=== PATIENT | female | born 1930 | race Caucasian/White ===

== ENCOUNTER 2017-04-26 00:13 | Inpatient (IN) | payer MEDICARE, OTHER ==
[2017-04-26] MEDS: ASPIRIN 325 MG TAB PO (01:00)
[2017-04-26 01:18] LABS: ADD MAN DIFF? NO
[2017-04-26 01:19] LABS: WHITE BLOOD COUNT 12.5 10^3/ul (4.8-10.8)
[2017-04-26 01:19] LABS: BASOPHILS % 0.3 % (0.0-2.0); EOSINOPHILS # 0.1 10^3/ul (0.0-0.5); HEMATOCRIT 34.2 % (37.0-47.0); HEMOGLOBIN 10.9 g/dl (12.0-16.0); LYMPHOCYTES # 1.3 10^3/ul (0.8-2.9); LYMPHOCYTES % 10.6 % (15.0-51.0); MEAN CORPUSCULAR HEMOGLOBIN 26.6 pg (29.0-33.0); MEAN CORPUSCULAR HGB CONC 31.9 g/dl (32.0-37.0); MEAN CORPUSCULAR VOLUME 83.4 fl (82.0-101.0); MEAN PLATELET VOLUME 10.5 fl (7.4-10.4); MONOCYTE # 0.5 10^3/ul (0.3-0.9); NEUTROPHIL # 10.3 10^3/ul (1.6-7.5); NEUTROPHILS % 82.5 % (39.0-77.0); PLATELET COUNT 368 10^3/UL (140-415); RED CELL DISTRIBUTION WIDTH 13.3 % (11.5-14.5)
[2017-04-26 01:46] LABS: ANION GAP 19 (8-16); BLOOD UREA NITROGEN 61 mg/dl (7-20); CALCIUM 10.1 mg/dl (8.4-10.2); CARBON DIOXIDE 24 mmol/L (21-31); CHLORIDE 100 mmol/L (97-110); CREATININE 2.71 mg/dl (0.44-1.00); GLUCOSE 160 mg/dl (70-220); POTASSIUM 4.7 mmol/L (3.5-5.1); SODIUM 138 mmol/L (135-144)
[2017-04-26 01:56] LABS: B-TYPE NATRIURETIC PEPTIDE 26700 PG/ML (0-450)
[2017-04-26 02:05] LABS: TROPONIN-I 0.678 ng/ml (0.00-0.12)
[2017-04-26] MEDS: CALCIUM GLUCONATE 10% 1 GM in DEXTROSE 5% 100 ML IVPB (02:14)
[2017-04-26] MEDS: HEPARIN 1000 UNITS/ML 10 ML INJ IV (04:02)
[2017-04-26] MEDS: HEPARIN 25000 UNITS/250 ML 250 ML IV (04:04)
[2017-04-26] MEDS: ONDANSETRON 4 MG INJ IV ×2 (04:09→08:01)
[2017-04-26] MEDS ORDERED: NITROGLYCERIN (SL) 0.4 MG TAB SL (05:00)
[2017-04-26] MEDS ORDERED: NACL 0.9% 3 ML SYG IV (05:00)
[2017-04-26] MEDS: FUROSEMIDE 20 MG INJ IV (05:07)
[2017-04-26 06:41] LABS: CREATINE KINASE 45 IU/L (23-200)
[2017-04-26 06:53] LABS: CK INDEX 3.4; CK-MB 1.55 ng/ml (0.0-2.4)
[2017-04-26 07:17] LABS: TROPONIN-I 0.591 ng/ml (0.00-0.12)
[2017-04-26] MEDS: DONEPEZIL 10 MG TAB PO (07:55)
[2017-04-26] MEDS: GABAPENTIN 100 MG CAP PO ×2 (07:56→20:20)
[2017-04-26] MEDS ORDERED: HEPARIN 1000 UNITS/ML 10 ML INJ IV ×2 (08:00)
[2017-04-26] MEDS ORDERED: HEPARIN 25000 UNITS/250 ML 250 ML IV (08:00)
[2017-04-26] MEDS: PANTOPRAZOLE (EC) 40 MG TAB PO (08:01)
[2017-04-26 08:42] LABS: ADD MAN DIFF? NO
[2017-04-26 08:53] LABS: BASOPHILS % 0.4 % (0.0-2.0); EOSINOPHILS # 0.3 10^3/ul (0.0-0.5); EOSINOPHILS % 2.3 % (0.0-7.0); HEMATOCRIT 28.9 % (37.0-47.0); HEMOGLOBIN 9.5 g/dl (12.0-16.0); LYMPHOCYTES % 18.2 % (15.0-51.0); MEAN CORPUSCULAR HEMOGLOBIN 27.5 pg (29.0-33.0); MEAN CORPUSCULAR HGB CONC 32.9 g/dl (32.0-37.0); MEAN CORPUSCULAR VOLUME 83.8 fl (82.0-101.0); MEAN PLATELET VOLUME 10.3 fl (7.4-10.4); MONOCYTE # 0.6 10^3/ul (0.3-0.9); MONOCYTES % 5.8 % (0.0-11.0); NEUTROPHIL # 7.9 10^3/ul (1.6-7.5); PLATELET COUNT 301 10^3/UL (140-415); RED BLOOD COUNT 3.45 10^6/ul (4.20-5.40); RED CELL DISTRIBUTION WIDTH 13.6 % (11.5-14.5)
[2017-04-26 09:12] LABS: INR 1.22; PROTIME 15.6 Sec (11.9-14.9); PT RATIO 1.2
[2017-04-26 09:15] LABS: CREATINE KINASE 42 IU/L (23-200)
[2017-04-26 09:25] LABS: CK INDEX 4.1; CK-MB 1.74 ng/ml (0.0-2.4)
[2017-04-26 09:27] LABS: PARTIAL THROMBOPLASTIN TIME 154.4 Sec (25.0-35.0)
[2017-04-26 09:39] LABS: TROPONIN-I 0.605 ng/ml (0.00-0.12)
[2017-04-26] MEDS ORDERED: hydrALAzine 20 MG INJ (10:48)
[2017-04-26] MEDS: hydrALAzine 20 MG INJ IV ×2 (10:51→19:03)
[2017-04-26] MEDS ORDERED: ONDANSETRON INJ 8 MG in DEXTROSE 5% 50 ML IV (12:00)
[2017-04-26] MEDS ORDERED: LIDOCAINE 1% (MDV) 20 ML INJ (16:48)
[2017-04-26] MEDS ORDERED: FENTAnyl 50 MCG/ML VIAL (16:48)
[2017-04-26] MEDS ORDERED: IODIXANOL LOCM 50 ML BTL (16:48)
[2017-04-26] MEDS ORDERED: MIDAZOLAM 1 MG/ML 2 ML INJ (16:48)
[2017-04-26] MEDS ORDERED: SOD CHLORIDE 0.9% 500 ML (16:48)
[2017-04-26] MEDS ORDERED: ONDANSETRON 4 MG INJ (18:31)
[2017-04-26] MEDS: ATORVASTATIN 10 MG TAB PO (20:20)
[2017-04-26] MEDS: morphine 2 MG INJ IV (20:20)
[2017-04-26 20:53] LABS: PARTIAL THROMBOPLASTIN TIME 34.1 Sec (25.0-35.0)
[2017-04-26] MEDS ORDERED: ATORVASTATIN 10 MG TAB PO (21:00)
[2017-04-26] MEDS: ACETAMINOPHEN 325 MG TAB PO (22:09)
[2017-04-26] MEDS: CEFAZOLIN 1 GM/50 ML (PMX) 50 ML IVPB (22:10)
[2017-04-27] MEDS: morphine 2 MG INJ IV (01:12)
[2017-04-27] MEDS: ACETAMINOPHEN 325 MG TAB PO ×3 (04:41→17:56)
[2017-04-27] MEDS: CEFAZOLIN 1 GM/50 ML (PMX) 50 ML IVPB (07:16)
[2017-04-27] MEDS: PANTOPRAZOLE (EC) 40 MG TAB PO (07:16)
[2017-04-27 07:23] LABS: ADD MAN DIFF? NO
[2017-04-27 07:27] LABS: WHITE BLOOD COUNT 15.5 10^3/ul (4.8-10.8)
[2017-04-27 07:27] LABS: BASOPHILS % 0.1 % (0.0-2.0); EOSINOPHILS % 0.1 % (0.0-7.0); HEMATOCRIT 31.2 % (37.0-47.0); HEMOGLOBIN 9.9 g/dl (12.0-16.0); LYMPHOCYTES # 1.2 10^3/ul (0.8-2.9); LYMPHOCYTES % 7.5 % (15.0-51.0); MEAN CORPUSCULAR HEMOGLOBIN 26.6 pg (29.0-33.0); MEAN CORPUSCULAR HGB CONC 31.7 g/dl (32.0-37.0); MEAN CORPUSCULAR VOLUME 83.9 fl (82.0-101.0); MONOCYTE # 0.5 10^3/ul (0.3-0.9); MONOCYTES % 3.5 % (0.0-11.0); NEUTROPHIL # 13.6 10^3/ul (1.6-7.5); PLATELET COUNT 337 10^3/UL (140-415); RED BLOOD COUNT 3.72 10^6/ul (4.20-5.40); RED CELL DISTRIBUTION WIDTH 13.9 % (11.5-14.5)
[2017-04-27 07:58] LABS: ALANINE AMINOTRANSFERASE 43 IU/L (13-69); ALBUMIN 3.8 g/dl (3.3-4.9); ALBUMIN/GLOBULIN RATIO 1.15; ALKALINE PHOSPHATASE 120 IU/L (42-121); ANION GAP 21 (8-16); ASPARTATE AMINO TRANSFERASE 66 IU/L (15-46); BILIRUBIN,INDIRECT 0.1 mg/dl (0-1.1); BILIRUBIN,TOTAL 0.1 mg/dl (0.2-1.3); BLOOD UREA NITROGEN 71 mg/dl (7-20); CALCIUM 9.6 mg/dl (8.4-10.2); CARBON DIOXIDE 23 mmol/L (21-31); CHLORIDE 102 mmol/L (97-110); GLUCOSE 166 mg/dl (70-220); POTASSIUM 4.6 mmol/L (3.5-5.1); SODIUM 141 mmol/L (135-144); TOTAL PROTEIN 7.1 g/dl (6.1-8.1)
[2017-04-27] MEDS: DONEPEZIL 10 MG TAB PO (08:49)
[2017-04-27] MEDS: GABAPENTIN 100 MG CAP PO ×2 (08:49→21:00)
[2017-04-27] MEDS: ASPIRIN 81 MG TAB PO (08:49)
[2017-04-27] MEDS: TRIMETHOBENZAMIDE 100 MG/ML VIAL IM (08:57)
[2017-04-27] MEDS: AMLODIPINE 2.5 MG TAB PO (13:51)
[2017-04-27] MEDS: SOD CHLORIDE 0.45% 1,000 ML IV (13:52)
[2017-04-27] MEDS: ATORVASTATIN 10 MG TAB PO (21:23)
[2017-04-28] MEDS: ACETAMINOPHEN 325 MG TAB PO ×2 (03:00→22:45)
[2017-04-28] MEDS: SOD CHLORIDE 0.45% 1,000 ML IV (03:50)
[2017-04-28] MEDS: PANTOPRAZOLE (EC) 40 MG TAB PO (05:14)
[2017-04-28] MEDS: ASPIRIN 81 MG TAB PO (07:39)
[2017-04-28] MEDS: GABAPENTIN 100 MG CAP PO ×2 (07:39→20:37)
[2017-04-28 09:02] LABS: WHITE BLOOD COUNT 16.1 10^3/ul (4.8-10.8)
[2017-04-28 09:02] LABS: ADD MAN DIFF? NO
[2017-04-28 09:03] LABS: BASOPHILS % 0.1 % (0.0-2.0); EOSINOPHILS # 0.3 10^3/ul (0.0-0.5); HEMATOCRIT 29.4 % (37.0-47.0); HEMOGLOBIN 9.4 g/dl (12.0-16.0); LYMPHOCYTES # 1.3 10^3/ul (0.8-2.9); LYMPHOCYTES % 8.1 % (15.0-51.0); MEAN CORPUSCULAR HEMOGLOBIN 27.2 pg (29.0-33.0); MEAN CORPUSCULAR VOLUME 85.2 fl (82.0-101.0); MEAN PLATELET VOLUME 10.2 fl (7.4-10.4); MONOCYTE # 0.7 10^3/ul (0.3-0.9); MONOCYTES % 4.1 % (0.0-11.0); NEUTROPHIL # 13.7 10^3/ul (1.6-7.5); NEUTROPHILS % 85.1 % (39.0-77.0); PLATELET COUNT 273 10^3/UL (140-415); RED BLOOD COUNT 3.45 10^6/ul (4.20-5.40); RED CELL DISTRIBUTION WIDTH 14.4 % (11.5-14.5)
[2017-04-28 09:35] LABS: ANION GAP 16 (8-16); BLOOD UREA NITROGEN 68 mg/dl (7-20); CALCIUM 8.4 mg/dl (8.4-10.2); CARBON DIOXIDE 23 mmol/L (21-31); CHLORIDE 101 mmol/L (97-110); GLUCOSE 140 mg/dl (70-220); PHOSPHORUS 4.9 mg/dl (2.5-4.9); POTASSIUM 4.1 mmol/L (3.5-5.1); SODIUM 136 mmol/L (135-144)
[2017-04-28 11:27] LABS: ADD UMIC YES; UR ASCORBIC ACID NEGATIVE (NEGATIVE); UR BILIRUBIN (Dip) NEGATIVE (NEGATIVE); UR BLOOD (Dip) NEGATIVE (NEGATIVE); UR CLARITY CLEAR (CLEAR); UR COLOR YELLOW (YELLOW); UR GLUCOSE (Dip) NEGATIVE (NEGATIVE); UR KETONES (Dip) NEGATIVE (NEGATIVE); UR LEUKOCYTE ESTERASE (Dip) TRACE Leu/ul (NEGATIVE); UR NITRITE (Dip) NEGATIVE (NEGATIVE); UR RBC 1 /HPF (0-5); UR SPECIFIC GRAVITY (Dip) 1.017 (1.003-1.030); UR TOTAL PROTEIN (Dip) NEGATIVE (NEGATIVE); UR UROBILINOGEN (Dip) NEGATIVE (NEGATIVE); UR WBC 5 /HPF (0-5)
[2017-04-28 11:45] LABS: SODIUM,URINE RANDOM 19 mmol/L (30-90)
[2017-04-28 11:47] LABS: CREATININE,URINE RANDOM 93.85 mg/dl (20-320); PROTEIN/CREAT RATIO 0.15 RATIO
[2017-04-28] MEDS ORDERED: LEVOFLOXACIN 750MG/D5W (PMX) 150 ML IVPB (13:00)
[2017-04-28] MEDS: LEVOFLOXACIN 500MG/D5W (PMX) 100 ML IVPB (13:33)
[2017-04-28] MEDS: ALBUTEROL/IPRATROPIUM (NEB) 3 ML AMP HHN (13:34)
[2017-04-28] MEDS: ATORVASTATIN 10 MG TAB PO (20:37)
[2017-04-29] MEDS: traMADol 50 MG TAB PO (05:09)
[2017-04-29] MEDS: ACETAMINOPHEN 325 MG TAB PO ×2 (05:10→15:50)
[2017-04-29] MEDS: PANTOPRAZOLE (EC) 40 MG TAB PO (05:10)
[2017-04-29] MEDS: ALBUTEROL/IPRATROPIUM (NEB) 3 ML AMP HHN (06:06)
[2017-04-29 06:19] LABS: ADD MAN DIFF? NO
[2017-04-29 07:18] LABS: PHOSPHORUS 4.6 mg/dl (2.5-4.9)
[2017-04-29 07:37] LABS: ANION GAP 18 (8-16); BLOOD UREA NITROGEN 66 mg/dl (7-20); CALCIUM 8.2 mg/dl (8.4-10.2); CARBON DIOXIDE 22 mmol/L (21-31); CHLORIDE 99 mmol/L (97-110); CREATININE 2.32 mg/dl (0.44-1.00); GLUCOSE 99 mg/dl (70-220); SODIUM 134 mmol/L (135-144)
[2017-04-29] MEDS: GABAPENTIN 100 MG CAP PO ×2 (08:00→20:29)
[2017-04-29] MEDS: ASPIRIN 81 MG TAB PO (08:01)
[2017-04-29 08:19] LABS: BASOPHILS % 0.2 % (0.0-2.0); EOSINOPHILS # 0.2 10^3/ul (0.0-0.5); EOSINOPHILS % 1.1 % (0.0-7.0); HEMATOCRIT 28.9 % (37.0-47.0); HEMOGLOBIN 9.3 g/dl (12.0-16.0); LYMPHOCYTES # 1.7 10^3/ul (0.8-2.9); LYMPHOCYTES % 11.8 % (15.0-51.0); MEAN CORPUSCULAR HEMOGLOBIN 27.2 pg (29.0-33.0); MEAN CORPUSCULAR HGB CONC 32.2 g/dl (32.0-37.0); MEAN CORPUSCULAR VOLUME 84.5 fl (82.0-101.0); MEAN PLATELET VOLUME 10.2 fl (7.4-10.4); MONOCYTE # 0.7 10^3/ul (0.3-0.9); MONOCYTES % 4.8 % (0.0-11.0); NEUTROPHIL # 11.6 10^3/ul (1.6-7.5); NEUTROPHILS % 81.5 % (39.0-77.0); PLATELET COUNT 272 10^3/UL (140-415); RED BLOOD COUNT 3.42 10^6/ul (4.20-5.40); RED CELL DISTRIBUTION WIDTH 14.3 % (11.5-14.5)
[2017-04-29 08:19] LABS: WHITE BLOOD COUNT 14.3 10^3/ul (4.8-10.8)
[2017-04-29] MEDS: AMLODIPINE 2.5 MG TAB PO ×2 (09:00→20:30)
[2017-04-29] MEDS: FUROSEMIDE 40 MG INJ IV (10:27)
[2017-04-29] MEDS: BISACODYL (EC) 5 MG TAB PO (14:02)
[2017-04-29] MEDS: ONDANSETRON 4 MG INJ IV (17:37)
[2017-04-29] MEDS: ATORVASTATIN 10 MG TAB PO (20:29)
[2017-04-30] MEDS: PANTOPRAZOLE (EC) 40 MG TAB PO (05:14)
[2017-04-30 06:18] LABS: ADD MAN DIFF? NO
[2017-04-30 06:40] LABS: WHITE BLOOD COUNT 12.6 10^3/ul (4.8-10.8)
[2017-04-30 06:40] LABS: BASOPHILS % 0.2 % (0.0-2.0); EOSINOPHILS # 0.3 10^3/ul (0.0-0.5); EOSINOPHILS % 2.3 % (0.0-7.0); HEMATOCRIT 27.9 % (37.0-47.0); HEMOGLOBIN 8.7 g/dl (12.0-16.0); LYMPHOCYTES # 1.6 10^3/ul (0.8-2.9); LYMPHOCYTES % 12.7 % (15.0-51.0); MEAN CORPUSCULAR HEMOGLOBIN 26.6 pg (29.0-33.0); MEAN CORPUSCULAR HGB CONC 31.2 g/dl (32.0-37.0); MEAN CORPUSCULAR VOLUME 85.3 fl (82.0-101.0); MEAN PLATELET VOLUME 10.2 fl (7.4-10.4); MONOCYTE # 0.7 10^3/ul (0.3-0.9); MONOCYTES % 5.7 % (0.0-11.0); NEUTROPHIL # 9.9 10^3/ul (1.6-7.5); NEUTROPHILS % 78.6 % (39.0-77.0); PLATELET COUNT 275 10^3/UL (140-415); RED BLOOD COUNT 3.27 10^6/ul (4.20-5.40); RED CELL DISTRIBUTION WIDTH 14.1 % (11.5-14.5)
[2017-04-30 06:59] LABS: IRON 18 ug/dl (35-150)
[2017-04-30 07:09] LABS: % IRON SATURATION 9 % SAT (22-52); TOTAL IRON BINDING CAPACITY 200 ug/dl (241-421)
[2017-04-30 07:34] LABS: ANION GAP 13 (8-16); BLOOD UREA NITROGEN 65 mg/dl (7-20); CALCIUM 8.2 mg/dl (8.4-10.2); CARBON DIOXIDE 24 mmol/L (21-31); CHLORIDE 103 mmol/L (97-110); CREATININE 2.31 mg/dl (0.44-1.00); GLUCOSE 119 mg/dl (70-220); POTASSIUM 3.9 mmol/L (3.5-5.1); SODIUM 136 mmol/L (135-144)
[2017-04-30 07:58] LABS: PHOSPHORUS 5.1 mg/dl (2.5-4.9)
[2017-04-30] MEDS: GABAPENTIN 100 MG CAP PO (09:00)
[2017-04-30] MEDS: AMLODIPINE 2.5 MG TAB PO (09:00)
[2017-04-30] MEDS: ASPIRIN 81 MG TAB PO (09:02)
[2017-04-30] MEDS: LEVOFLOXACIN 250MG/D5W (PMX) 50 ML IVPB (15:33)
[2017-05-01] MEDS ORDERED: FUROSEMIDE 20 MG TAB PO (09:00)
== END 2017-04-30 18:43 | disposition home or self-care (01) | DRG 242 ==
LOC: MS4 07:04 → E/R 00:13 → MS4 02:24
PROC: 0JH606Z Insertion of Pacemaker, Dual Chamber into Chest Subcutaneous Tissue and Fascia, Open Approach (ICD-10-PCS; principal; 2017-04-26 17:00)
PROC: 02HL3JZ Insertion of Pacemaker Lead into Left Ventricle, Percutaneous Approach (ICD-10-PCS; 2017-04-26 17:00)
DX: I21.4 Non-ST elevation (NSTEMI) myocardial infarction (principal); I50.33 Acute on chronic diastolic (congestive) heart failure; I44.2 Atrioventricular block, complete; N17.9 Acute kidney failure, unspecified; I13.0 Hypertensive heart and chronic kidney disease with heart failure and stage 1 through stage 4 chronic kidney disease, or unspecified chronic kidney disease; N18.9 Chronic kidney disease, unspecified; Z66 Do not resuscitate; I35.0 Nonrheumatic aortic (valve) stenosis; I27.20 Pulmonary hypertension, unspecified; E78.5 Hyperlipidemia, unspecified; D50.9 Iron deficiency anemia, unspecified
CPT/HCPCS: 36415; 71010; 80048; 80053; 81001; 81003; 82550; 82553; 82570; 82728; 83540; 83605; 83735; 83880; 84100; 84300; 84484; 85025; 85610; 85730; 87400; 93005; 94640; 96374; 96375; 96376; 99291-25; J1940

== ENCOUNTER 2017-05-31 09:42 | Inpatient (IN) | payer MEDICARE, OTHER ==
[2017-05-31] MEDS: NITROGLYCERIN (SL) 0.4 MG TAB SL (10:23)
[2017-05-31] MEDS: ASPIRIN 81 MG TAB PO (10:23)
[2017-05-31] MEDS: NITROGLYCERIN 2% 1 GM OINT PKT TD (10:24)
[2017-05-31 10:25] LABS: ADD MAN DIFF? NO
[2017-05-31 10:28] LABS: BASOPHIL # 0.1 10^3/ul (0.0-0.1); BASOPHILS % 0.8 % (0.0-2.0); EOSINOPHILS # 0.6 10^3/ul (0.0-0.5); EOSINOPHILS % 7.9 % (0.0-7.0); HEMATOCRIT 34.1 % (37.0-47.0); HEMOGLOBIN 10.5 g/dl (12.0-16.0); LYMPHOCYTES # 1.8 10^3/ul (0.8-2.9); LYMPHOCYTES % 22.8 % (15.0-51.0); MEAN CORPUSCULAR HEMOGLOBIN 26.8 pg (29.0-33.0); MEAN CORPUSCULAR HGB CONC 30.8 g/dl (32.0-37.0); MEAN PLATELET VOLUME 10.4 fl (7.4-10.4); MONOCYTE # 0.4 10^3/ul (0.3-0.9); MONOCYTES % 4.4 % (0.0-11.0); NEUTROPHIL # 5.1 10^3/ul (1.6-7.5); PLATELET COUNT 288 10^3/UL (140-415); RED BLOOD COUNT 3.92 10^6/ul (4.20-5.40); RED CELL DISTRIBUTION WIDTH 14.9 % (11.5-14.5)
[2017-05-31 10:48] LABS: ANION GAP 17 (8-16); BLOOD UREA NITROGEN 34 mg/dl (7-20); CALCIUM 9.7 mg/dl (8.4-10.2); CARBON DIOXIDE 26 mmol/L (21-31); CHLORIDE 105 mmol/L (97-110); CREATININE 1.86 mg/dl (0.44-1.00); GLUCOSE 124 mg/dl (70-220); POTASSIUM 4.4 mmol/L (3.5-5.1); SODIUM 144 mmol/L (135-144)
[2017-05-31 10:59] LABS: INR 0.93; PROTIME 12.5 Sec (11.9-14.9)
[2017-05-31 11:00] LABS: PARTIAL THROMBOPLASTIN TIME 20.2 Sec (25.0-35.0); TROPONIN-I 0.054 ng/ml (0.00-0.12)
[2017-05-31] MEDS ORDERED: ONDANSETRON 4 MG INJ IV ×2 (11:30→15:30)
[2017-05-31] MEDS ORDERED: ACETAMINOPHEN 325 MG TAB PO ×2 (11:30→15:30)
[2017-05-31] MEDS: FUROSEMIDE 40 MG INJ IV (11:36)
[2017-05-31] MEDS ORDERED: NACL 0.9% 3 ML SYG IV (15:30)
[2017-05-31] MEDS ORDERED: HYDROCODONE/APAP (5/325) TAB PO (15:30)
[2017-05-31] MEDS: FUROSEMIDE 20 MG INJ IV (18:12)
[2017-05-31 19:34] LABS: CREATINE KINASE 28 IU/L (23-200)
[2017-05-31 19:48] LABS: CK INDEX 3.7; CK-MB 1.03 ng/ml (0.0-2.4); TROPONIN-I 0.062 ng/ml (0.00-0.12)
[2017-05-31] MEDS: HEPARIN 5,000 UNIT/0.5 ML VIAL SC (20:15)
[2017-05-31] MEDS: ATORVASTATIN 10 MG TAB PO (22:36)
[2017-06-01 01:54] LABS: CREATINE KINASE 27 IU/L (23-200)
[2017-06-01 02:05] LABS: CK INDEX 3.8; CK-MB 1.02 ng/ml (0.0-2.4); TROPONIN-I 0.067 ng/ml (0.00-0.12)
[2017-06-01] MEDS: FUROSEMIDE 20 MG INJ IV (05:39)
[2017-06-01] MEDS: PANTOPRAZOLE (EC) 40 MG TAB PO (05:39)
[2017-06-01] MEDS: hydrALAzine 20 MG INJ IV (07:01)
[2017-06-01 08:43] LABS: ADD MAN DIFF? NO
[2017-06-01 08:52] LABS: BASOPHILS % 0.6 % (0.0-2.0); EOSINOPHILS # 0.6 10^3/ul (0.0-0.5); EOSINOPHILS % 9.8 % (0.0-7.0); HEMATOCRIT 32.2 % (37.0-47.0); HEMOGLOBIN 10.1 g/dl (12.0-16.0); LYMPHOCYTES # 2.1 10^3/ul (0.8-2.9); LYMPHOCYTES % 32.8 % (15.0-51.0); MEAN CORPUSCULAR HEMOGLOBIN 27.2 pg (29.0-33.0); MEAN CORPUSCULAR HGB CONC 31.4 g/dl (32.0-37.0); MEAN CORPUSCULAR VOLUME 86.8 fl (82.0-101.0); MEAN PLATELET VOLUME 9.8 fl (7.4-10.4); MONOCYTE # 0.3 10^3/ul (0.3-0.9); MONOCYTES % 5.4 % (0.0-11.0); NEUTROPHIL # 3.2 10^3/ul (1.6-7.5); NEUTROPHILS % 51.1 % (39.0-77.0); PLATELET COUNT 243 10^3/UL (140-415); RED BLOOD COUNT 3.71 10^6/ul (4.20-5.40); RED CELL DISTRIBUTION WIDTH 14.5 % (11.5-14.5)
[2017-06-01 08:52] LABS: WHITE BLOOD COUNT 6.3 10^3/ul (4.8-10.8)
[2017-06-01] MEDS: HEPARIN 5,000 UNIT/0.5 ML VIAL SC (09:00)
[2017-06-01] MEDS: CLOPIDOGREL 75 MG TAB PO (09:00)
[2017-06-01] MEDS: DONEPEZIL 10 MG TAB PO (09:00)
[2017-06-01] MEDS: ASPIRIN (EC) 81 MG TAB PO (09:00)
[2017-06-01 09:06] LABS: HEMOGLOBIN A1C 5.4 % (0-5.9)
[2017-06-01 09:24] LABS: ALANINE AMINOTRANSFERASE 33 IU/L (13-69); ALBUMIN 3.9 g/dl (3.3-4.9); ALBUMIN/GLOBULIN RATIO 1.44; ALKALINE PHOSPHATASE 99 IU/L (42-121); ANION GAP 18 (8-16); ASPARTATE AMINO TRANSFERASE 24 IU/L (15-46); BILIRUBIN,INDIRECT 0.4 mg/dl (0-1.1); BILIRUBIN,TOTAL 0.4 mg/dl (0.2-1.3); BLOOD UREA NITROGEN 35 mg/dl (7-20); CALCIUM 9.5 mg/dl (8.4-10.2); CARBON DIOXIDE 27 mmol/L (21-31); CHLORIDE 104 mmol/L (97-110); CREATININE 1.82 mg/dl (0.44-1.00); GLUCOSE 103 mg/dl (70-220); MAGNESIUM 1.8 mg/dl (1.7-2.5); POTASSIUM 3.9 mmol/L (3.5-5.1); SODIUM 145 mmol/L (135-144); TOTAL PROTEIN 6.6 g/dl (6.1-8.1)
[2017-06-01 09:27] LABS: HDL CHOLESTEROL 37 mg/dl (33-92); LDL CHOLESTEROL,CALCULATED 140 mg/dl; TRIGLYCERIDES 232 mg/dl (0-149)
[2017-06-01 09:27] LABS: CHOLESTEROL 223 mg/dl (100-200)
[2017-06-01 15:28] LABS: THYROID STIMULATING HORMONE 0.412 MIU/L (0.465-4.680)
[2017-06-05] MEDS ORDERED: ALENDRONATE 70 MG TAB PO (09:00)
== END 2017-06-01 14:26 | disposition hospice, home (50) | DRG 291 ==
LOC: E/R 09:42 → MS4 11:31
DX: I13.0 Hypertensive heart and chronic kidney disease with heart failure and stage 1 through stage 4 chronic kidney disease, or unspecified chronic kidney disease (principal); I50.33 Acute on chronic diastolic (congestive) heart failure; N18.4 Chronic kidney disease, stage 4 (severe); D64.9 Anemia, unspecified; I27.20 Pulmonary hypertension, unspecified; I35.0 Nonrheumatic aortic (valve) stenosis; E78.5 Hyperlipidemia, unspecified; I25.10 Atherosclerotic heart disease of native coronary artery without angina pectoris; Z66 Do not resuscitate; I25.2 Old myocardial infarction; Z79.02 Long term (current) use of antithrombotics/antiplatelets; Z79.82 Long term (current) use of aspirin; Z95.0 Presence of cardiac pacemaker
CPT/HCPCS: 36415; 71045; 80048; 80053; 80061; 82550; 82553; 83036; 83735; 84443; 84484; 85025; 85610; 85730; 87081; 93005; 94660; 96372; 96374; 96376; 99291-25; J1940

== ENCOUNTER 2017-07-12 08:31 | Inpatient (IN) | payer MEDICARE, OTHER ==
[2017-07-12] MEDS: NITROGLYCERIN 2% 1 GM OINT PKT TD (09:00)
[2017-07-12] MEDS: FUROSEMIDE 40 MG INJ IV (09:00)
[2017-07-12 09:11] LABS: AADO2 Arterial 600.6 mmHg (7.0-24.0); Allen Test ACCEPTAB; Arterial Base Excess -2.2 mmol/L (-3.0-3); Arterial Blood Gas Oxygen Sat 88.2 mmHG (95.0-100.0); Arterial COHb 0.3 % (0.0-3.0); Arterial Fraction of Oxyhgb 87.8 % (93.0-99.0); Arterial HCO3 25.1 mmol/L (22.0-26.0); Arterial MetHb 0.2 % (0.0-1.5); Arterial Total Hemglobin 11.2 g/dl (12.0-18.0); Arterial pCO2 54.8 mmhg (35-45); Blood Gas IEPAP 20/7; Blood Gas PS 13; MODE MASK - BIPAP; Site Left Radial
[2017-07-12 09:27] LABS: ADD MAN DIFF? NO
[2017-07-12 09:31] LABS: WHITE BLOOD COUNT 9.8 10^3/ul (4.8-10.8)
[2017-07-12 09:31] LABS: BASOPHIL # 0.1 10^3/ul (0.0-0.1); BASOPHILS % 0.5 % (0.0-2.0); EOSINOPHILS # 0.5 10^3/ul (0.0-0.5); EOSINOPHILS % 4.7 % (0.0-7.0); HEMATOCRIT 31.7 % (37.0-47.0); HEMOGLOBIN 9.6 g/dl (12.0-16.0); LYMPHOCYTES # 1.2 10^3/ul (0.8-2.9); LYMPHOCYTES % 12.5 % (15.0-51.0); MEAN CORPUSCULAR HEMOGLOBIN 26.2 pg (29.0-33.0); MEAN CORPUSCULAR HGB CONC 30.3 g/dl (32.0-37.0); MEAN CORPUSCULAR VOLUME 86.4 fl (82.0-101.0); MEAN PLATELET VOLUME 9.4 fl (7.4-10.4); MONOCYTE # 0.4 10^3/ul (0.3-0.9); NEUTROPHIL # 7.6 10^3/ul (1.6-7.5); NEUTROPHILS % 77.8 % (39.0-77.0); PLATELET COUNT 339 10^3/UL (140-415); RED BLOOD COUNT 3.67 10^6/ul (4.20-5.40); RED CELL DISTRIBUTION WIDTH 13.4 % (11.5-14.5)
[2017-07-12 09:54] LABS: INR 0.97
[2017-07-12 09:55] LABS: PARTIAL THROMBOPLASTIN TIME 30.6 Sec (25.0-35.0)
[2017-07-12 10:03] LABS: ALANINE AMINOTRANSFERASE 32 IU/L (13-69); ALBUMIN 3.9 g/dl (3.3-4.9); ALKALINE PHOSPHATASE 126 IU/L (42-121); ANION GAP 17 (8-16); ASPARTATE AMINO TRANSFERASE 33 IU/L (15-46); BLOOD UREA NITROGEN 48 mg/dl (7-20); CALCIUM 9.2 mg/dl (8.4-10.2); CARBON DIOXIDE 28 mmol/L (21-31); CHLORIDE 106 mmol/L (97-110); CREATININE 2.67 mg/dl (0.44-1.00); GLUCOSE 177 mg/dl (70-220); SODIUM 145 mmol/L (135-144); TOTAL PROTEIN 6.9 g/dl (6.1-8.1)
[2017-07-12 10:06] LABS: POTASSIUM 6.2 mmol/L (3.5-5.1)
[2017-07-12 10:17] LABS: TROPONIN-I 0.041 ng/ml (0.00-0.12)
[2017-07-12] MEDS: NA BICARBONATE 8.4% 50 ML SYG IV (10:35)
[2017-07-12] MEDS: CALCIUM GLUCONATE 10% 1 GM in DEXTROSE 5% 100 ML IVPB (10:43)
[2017-07-12 10:55] LABS: B-TYPE NATRIURETIC PEPTIDE 35900 PG/ML (0-450)
[2017-07-12] MEDS ORDERED: ONDANSETRON 4 MG INJ IV (12:00)
[2017-07-12] MEDS ORDERED: ZOLPIDEM 5 MG TAB PO (12:00)
[2017-07-12] MEDS ORDERED: VANCOMYCIN IV PER PHARMACY XX (12:00)
[2017-07-12] MEDS ORDERED: DEXTROSE 50% 50 ML SYRINGE IV (12:00)
[2017-07-12] MEDS: DOCUSATE SODIUM 100 MG CAP PO ×2 (12:00→20:50)
[2017-07-12] MEDS ORDERED: ALBUTEROL/IPRATROPIUM (NEB) 3 ML AMP NEB (12:00)
[2017-07-12] MEDS ORDERED: ACETAMINOPHEN 650MG/20.3ML CUP PO (12:00)
[2017-07-12 12:50] LABS: AADO2 Arterial 432.7 mmHg (7.0-24.0); Arterial Base Excess 3.5 mmol/L (-3.0-3); Arterial Blood Gas Oxygen Sat 99.2 mmHG (95.0-100.0); Arterial COHb 0.3 % (0.0-3.0); Arterial Fraction of Oxyhgb 98.6 % (93.0-99.0); Arterial MetHb 0.3 % (0.0-1.5); Arterial Total Hemglobin 10.7 g/dl (12.0-18.0); Arterial pCO2 47.7 mmhg (35-45); Blood Gas IEPAP 20/7; MODE MASK - BIPAP; Site Right Radial
[2017-07-12] MEDS: CEFEPIME 1GM/50 ML (PMX) 50 ML IVPB (13:22)
[2017-07-12] MEDS: CLOPIDOGREL 75 MG TAB PO (13:39)
[2017-07-12] MEDS: ASPIRIN 81 MG TAB PO (13:39)
[2017-07-12] MEDS: BUMETANIDE 3 MG in DEXTROSE 5% 18 ML IV (13:39)
[2017-07-12] MEDS: VANCOMYCIN 1.25 GM in SOD CHLORIDE 0.9% 250 ML IVPB (13:39)
[2017-07-12] MEDS: ALBUTEROL/IPRATROPIUM (NEB) 3 ML AMP NEB ×3 (14:29→20:57)
[2017-07-12 15:17] LABS: CREATINE KINASE 22 IU/L (23-200)
[2017-07-12 15:18] LABS: ANION GAP 21 (8-16); BLOOD UREA NITROGEN 49 mg/dl (7-20); CALCIUM 9.6 mg/dl (8.4-10.2); CARBON DIOXIDE 28 mmol/L (21-31); CHLORIDE 103 mmol/L (97-110); CREATININE 2.31 mg/dl (0.44-1.00); GLUCOSE 112 mg/dl (70-220); POTASSIUM 4.9 mmol/L (3.5-5.1); SODIUM 147 mmol/L (135-144)
[2017-07-12 15:27] LABS: CK INDEX 4.3; CK-MB 0.95 ng/ml (0.0-2.4); TROPONIN-I 0.043 ng/ml (0.00-0.12)
[2017-07-12 15:56] LABS: MAGNESIUM 2.2 mg/dl (1.7-2.5)
[2017-07-12 18:44] LABS: ANION GAP 19 (8-16); BLOOD UREA NITROGEN 48 mg/dl (7-20); CALCIUM 9.4 mg/dl (8.4-10.2); CARBON DIOXIDE 30 mmol/L (21-31); CHLORIDE 103 mmol/L (97-110); CREATININE 2.23 mg/dl (0.44-1.00); GLUCOSE 98 mg/dl (70-220); POTASSIUM 4.7 mmol/L (3.5-5.1); SODIUM 147 mmol/L (135-144)
[2017-07-12] MEDS: INSULIN REGULAR, HUMAN 100 UNIT/1 ML 3ML VIAL IVP (19:00)
[2017-07-12] MEDS: DEXTROSE 50% 50 ML SYRINGE IV (19:00)
[2017-07-12 20:00] LABS: AADO2 Arterial 161.8 mmHg (7.0-24.0); Allen Test ACCEPTAB; Arterial Base Excess 2.4 mmol/L (-3.0-3); Arterial Blood Gas Oxygen Sat 95.3 mmHG (95.0-100.0); Arterial COHb 0.3 % (0.0-3.0); Arterial Fraction of Oxyhgb 94.9 % (93.0-99.0); Arterial HCO3 27.4 mmol/L (22.0-26.0); Arterial MetHb 0.1 % (0.0-1.5); Arterial Total Hemglobin 10.5 g/dl (12.0-18.0); Arterial pCO2 44.4 mmhg (35-45); MODE HFNC; Site Right Radial
[2017-07-12 20:48] LABS: CREATINE KINASE 23 IU/L (23-200)
[2017-07-12] MEDS: BUMETANIDE 2 MG in DEXTROSE 5% 17 ML IVPB (20:50)
[2017-07-12] MEDS: LORAZEPAM 2 MG INJ IV (20:50)
[2017-07-12 21:00] LABS: CK-MB 0.91 ng/ml (0.0-2.4); TROPONIN-I 0.048 ng/ml (0.00-0.12)
[2017-07-12] MEDS: HEPARIN 5,000 UNIT/0.5 ML VIAL SC (21:08)
[2017-07-13] MEDS: ALBUTEROL/IPRATROPIUM (NEB) 3 ML AMP NEB ×6 (00:26→20:07)
[2017-07-13 05:06] LABS: ADD MAN DIFF? NO
[2017-07-13 05:22] LABS: BASOPHILS % 0.6 % (0.0-2.0); EOSINOPHILS # 0.4 10^3/ul (0.0-0.5); EOSINOPHILS % 5.4 % (0.0-7.0); HEMATOCRIT 28.2 % (37.0-47.0); HEMOGLOBIN 8.8 g/dl (12.0-16.0); LYMPHOCYTES # 2.2 10^3/ul (0.8-2.9); LYMPHOCYTES % 33.1 % (15.0-51.0); MEAN CORPUSCULAR HEMOGLOBIN 26.3 pg (29.0-33.0); MEAN CORPUSCULAR HGB CONC 31.2 g/dl (32.0-37.0); MEAN CORPUSCULAR VOLUME 84.4 fl (82.0-101.0); MEAN PLATELET VOLUME 9.5 fl (7.4-10.4); MONOCYTE # 0.6 10^3/ul (0.3-0.9); MONOCYTES % 8.9 % (0.0-11.0); NEUTROPHIL # 3.4 10^3/ul (1.6-7.5); NEUTROPHILS % 51.8 % (39.0-77.0); PLATELET COUNT 294 10^3/UL (140-415); RED BLOOD COUNT 3.34 10^6/ul (4.20-5.40); RED CELL DISTRIBUTION WIDTH 13.3 % (11.5-14.5)
[2017-07-13 05:22] LABS: WHITE BLOOD COUNT 6.5 10^3/ul (4.8-10.8)
[2017-07-13 05:45] LABS: ANION GAP 16 (8-16); BLOOD UREA NITROGEN 49 mg/dl (7-20); CALCIUM 9.2 mg/dl (8.4-10.2); CARBON DIOXIDE 30 mmol/L (21-31); CHLORIDE 105 mmol/L (97-110); CREATININE 2.15 mg/dl (0.44-1.00); GLUCOSE 81 mg/dl (70-220); MAGNESIUM 2.1 mg/dl (1.7-2.5); PHOSPHORUS 4.2 mg/dl (2.5-4.9); POTASSIUM 4.4 mmol/L (3.5-5.1); SODIUM 147 mmol/L (135-144)
[2017-07-13 05:48] LABS: URIC ACID 9.9 mg/dl (3.1-7.9)
[2017-07-13 05:59] LABS: CREATINE KINASE < 20 IU/L (23-200)
[2017-07-13 07:09] LABS: SODIUM,URINE RANDOM 84 mmol/L (30-90)
[2017-07-13 07:10] LABS: CREATININE,URINE RANDOM 69.78 mg/dl (20-320)
[2017-07-13] MEDS: HEPARIN 5,000 UNIT/0.5 ML VIAL SC ×2 (08:39→20:56)
[2017-07-13] MEDS: BUMETANIDE 1 MG INJ IV ×2 (10:40→17:43)
[2017-07-13] MEDS: ASPIRIN 81 MG TAB PO (11:43)
[2017-07-13] MEDS: CLOPIDOGREL 75 MG TAB PO (11:43)
[2017-07-13] MEDS: DOCUSATE SODIUM 100 MG CAP PO ×2 (11:44→20:55)
[2017-07-13] MEDS: CEFEPIME 1GM/50 ML (PMX) 50 ML IVPB (14:30)
[2017-07-14] MEDS: ALBUTEROL/IPRATROPIUM (NEB) 3 ML AMP NEB ×4 (00:11→14:06)
[2017-07-14 05:36] LABS: ADD MAN DIFF? NO
[2017-07-14 05:45] LABS: WHITE BLOOD COUNT 7.3 10^3/ul (4.8-10.8)
[2017-07-14 05:45] LABS: BASOPHIL # 0.1 10^3/ul (0.0-0.1); BASOPHILS % 0.7 % (0.0-2.0); EOSINOPHILS # 0.4 10^3/ul (0.0-0.5); EOSINOPHILS % 5.5 % (0.0-7.0); HEMATOCRIT 30.9 % (37.0-47.0); HEMOGLOBIN 9.8 g/dl (12.0-16.0); LYMPHOCYTES # 1.7 10^3/ul (0.8-2.9); LYMPHOCYTES % 23.4 % (15.0-51.0); MEAN CORPUSCULAR HEMOGLOBIN 26.6 pg (29.0-33.0); MEAN CORPUSCULAR HGB CONC 31.7 g/dl (32.0-37.0); MEAN CORPUSCULAR VOLUME 83.7 fl (82.0-101.0); MEAN PLATELET VOLUME 9.5 fl (7.4-10.4); MONOCYTE # 0.5 10^3/ul (0.3-0.9); MONOCYTES % 7.4 % (0.0-11.0); NEUTROPHIL # 4.6 10^3/ul (1.6-7.5); NEUTROPHILS % 62.7 % (39.0-77.0); PLATELET COUNT 328 10^3/UL (140-415); RED BLOOD COUNT 3.69 10^6/ul (4.20-5.40); RED CELL DISTRIBUTION WIDTH 13.3 % (11.5-14.5)
[2017-07-14] MEDS: BUMETANIDE 1 MG INJ IV (06:01)
[2017-07-14 06:04] LABS: ANION GAP 16 (8-16); BLOOD UREA NITROGEN 46 mg/dl (7-20); CALCIUM 9.3 mg/dl (8.4-10.2); CARBON DIOXIDE 33 mmol/L (21-31); CHLORIDE 101 mmol/L (97-110); CREATININE 1.97 mg/dl (0.44-1.00); GLUCOSE 99 mg/dl (70-220); POTASSIUM 3.9 mmol/L (3.5-5.1); SODIUM 146 mmol/L (135-144)
[2017-07-14] MEDS: CLOPIDOGREL 75 MG TAB PO (08:01)
[2017-07-14] MEDS: DOCUSATE SODIUM 100 MG CAP PO (08:01)
[2017-07-14] MEDS: ASPIRIN 81 MG TAB PO (08:01)
[2017-07-14] MEDS: HEPARIN 5,000 UNIT/0.5 ML VIAL SC (08:05)
[2017-07-14] MEDS ORDERED: VANCOMYCIN 500MG/NS (PMX) 100 ML IVPB (14:00)
[2017-07-14] MEDS ORDERED: VANCOMYCIN 750 MG in DEXTROSE 5% 150 ML IVPB (14:00)
[2017-07-15] MEDS ORDERED: VANCOMYCIN 500MG/NS (PMX) 100 ML IVPB (01:00)
[2017-07-15] MEDS ORDERED: BUMETANIDE 1 MG INJ IV (09:00)
== END 2017-07-14 16:11 | disposition home or self-care (01) | DRG 291 ==
LOC: E/R 08:31 → ICU 10:45
PROC: 5A09357 Assistance with Respiratory Ventilation, Less than 24 Consecutive Hours, Continuous Positive Airway Pressure (ICD-10-PCS; principal; 2017-07-12)
PROC: 4A133R1 Monitoring of Arterial Saturation, Peripheral, Percutaneous Approach (ICD-10-PCS; 2017-07-12)
DX: I13.0 Hypertensive heart and chronic kidney disease with heart failure and stage 1 through stage 4 chronic kidney disease, or unspecified chronic kidney disease (principal); I50.43 Acute on chronic combined systolic (congestive) and diastolic (congestive) heart failure; J96.21 Acute and chronic respiratory failure with hypoxia; I44.2 Atrioventricular block, complete; J18.9 Pneumonia, unspecified organism; J96.22 Acute and chronic respiratory failure with hypercapnia; E87.2 Acidosis; N17.9 Acute kidney failure, unspecified; D63.1 Anemia in chronic kidney disease; I50.84 End stage heart failure; Z66 Do not resuscitate; E78.00 Pure hypercholesterolemia, unspecified; I25.2 Old myocardial infarction; D50.9 Iron deficiency anemia, unspecified; I25.10 Atherosclerotic heart disease of native coronary artery without angina pectoris; I27.20 Pulmonary hypertension, unspecified; N18.9 Chronic kidney disease, unspecified; I35.0 Nonrheumatic aortic (valve) stenosis; Z79.82 Long term (current) use of aspirin; Z95.0 Presence of cardiac pacemaker
CPT/HCPCS: 36600; 71045; 76604; 76775; 80048; 80053; 81003; 82550; 82553; 82570; 82803; 83735; 83880; 84100; 84300; 84484; 84560; 85025; 85610; 85730; 87040; 87081; 87086; 89190; 93005; 93306; 94640; 94660; 94664; 96374; 96375; 99285-25

== ENCOUNTER 2017-08-07 06:21 | Inpatient (IN) | payer MEDICARE, OTHER ==
[2017-08-07] MEDS: NITROGLYCERIN 2% 1 GM OINT PKT TD (06:39)
[2017-08-07] MEDS: ASPIRIN 81 MG TAB PO (06:39)
[2017-08-07] MEDS ORDERED: NITROGLYCERIN (SL) 0.4 MG TAB SL (07:00)
[2017-08-07 07:23] LABS: ADD MAN DIFF? NO
[2017-08-07 07:45] LABS: ANION GAP 17 (8-16); BLOOD UREA NITROGEN 50 mg/dl (7-20); CALCIUM 9.4 mg/dl (8.4-10.2); CARBON DIOXIDE 30 mmol/L (21-31); CHLORIDE 104 mmol/L (97-110); CREATININE 1.89 mg/dl (0.44-1.00); GLUCOSE 131 mg/dl (70-220); POTASSIUM 4.6 mmol/L (3.5-5.1); SODIUM 146 mmol/L (135-144)
[2017-08-07 07:56] LABS: TROPONIN-I 0.053 ng/ml (0.00-0.12)
[2017-08-07] MEDS: FUROSEMIDE 20 MG INJ IV (07:56)
[2017-08-07 08:22] LABS: BASOPHILS % 0.4 % (0.0-2.0); EOSINOPHILS # 0.3 10^3/ul (0.0-0.5); EOSINOPHILS % 3.3 % (0.0-7.0); HEMATOCRIT 29.9 % (37.0-47.0); HEMOGLOBIN 9.1 g/dl (12.0-16.0); MEAN CORPUSCULAR HEMOGLOBIN 26.3 pg (29.0-33.0); MEAN CORPUSCULAR HGB CONC 30.4 g/dl (32.0-37.0); MEAN CORPUSCULAR VOLUME 86.4 fl (82.0-101.0); MEAN PLATELET VOLUME 10.5 fl (7.4-10.4); MONOCYTE # 0.6 10^3/ul (0.3-0.9); MONOCYTES % 6.7 % (0.0-11.0); NEUTROPHIL # 7.3 10^3/ul (1.6-7.5); NEUTROPHILS % 78.3 % (39.0-77.0); PLATELET COUNT 180 10^3/UL (140-415); RED BLOOD COUNT 3.46 10^6/ul (4.20-5.40); RED CELL DISTRIBUTION WIDTH 14.9 % (11.5-14.5)
[2017-08-07 08:22] LABS: WHITE BLOOD COUNT 9.3 10^3/ul (4.8-10.8)
[2017-08-07] MEDS: LIDOCAINE 1% (MPF) 5 ML VIAL SC (08:52)
[2017-08-07] MEDS ORDERED: ONDANSETRON 4 MG INJ IV ×2 (09:00→21:58)
[2017-08-07] MEDS ORDERED: ACETAMINOPHEN 325 MG TAB PO (09:00)
[2017-08-07 13:16] LABS: CREATINE KINASE 21 IU/L (23-200)
[2017-08-07 13:28] LABS: CK INDEX 4.2; CK-MB 0.88 ng/ml (0.0-2.4); TROPONIN-I 0.034 ng/ml (0.00-0.12)
[2017-08-07] MEDS ORDERED: VANCOMYCIN IV PER PHARMACY XX (13:30)
[2017-08-07] MEDS ORDERED: NACL 0.9% 3 ML SYG IV (13:30)
[2017-08-07] MEDS: metroNIDAZOLE 500 MG TAB PO ×2 (15:24→22:00)
[2017-08-07] MEDS: CEFEPIME 1GM/50 ML (PMX) 50 ML IVPB (15:45)
[2017-08-07] MEDS: BUMETANIDE 2 MG in DEXTROSE 5% 17 ML IVPB (16:24)
[2017-08-07] MEDS: VANCOMYCIN 1 GM 250 ML IVPB (17:52)
[2017-08-07 19:01] LABS: CREATINE KINASE 23 IU/L (23-200)
[2017-08-07 19:13] LABS: CK INDEX 4.7; CK-MB 1.08 ng/ml (0.0-2.4); TROPONIN-I 0.035 ng/ml (0.00-0.12)
[2017-08-07] MEDS: ALBUTEROL/IPRATROPIUM (NEB) 3 ML AMP HHN (19:14)
[2017-08-07 20:01] LABS: AADO2 Arterial 86.3 mmHg (7.0-24.0); Allen Test ACCEPTAB; Arterial Base Excess 1.2 mmol/L (-3.0-3); Arterial Blood Gas Oxygen Sat 97.7 mmHG (95.0-100.0); Arterial COHb 0.2 % (0.0-3.0); Arterial Fraction of Oxyhgb 97.2 % (93.0-99.0); Arterial HCO3 27.3 mmol/L (22.0-26.0); Arterial MetHb 0.3 % (0.0-1.5); Arterial Total Hemglobin 11.7 g/dl (12.0-18.0); Arterial pCO2 49.6 mmhg (35-45); MODE NASAL CANNULA; Site Left Radial
[2017-08-07] MEDS: ATORVASTATIN 10 MG TAB PO (21:00)
[2017-08-07] MEDS: FISH OIL 1,000 MG CAP PO (21:00)
[2017-08-07] MEDS: BUMETANIDE 1 MG INJ IV (21:31)
[2017-08-07] MEDS: HEPARIN 5,000 UNIT/0.5 ML VIAL SC (21:55)
[2017-08-07] MEDS: ONDANSETRON INJ 8 MG in SOD CHLORIDE 0.9% 50 ML IV (22:30)
[2017-08-07] MEDS: ONDANSETRON 4 MG INJ IV (22:36)
[2017-08-07] MEDS: morphine 2 MG INJ IV (22:37)
[2017-08-08] MEDS: PANTOPRAZOLE (EC) 40 MG TAB PO (06:29)
[2017-08-08] MEDS: BUMETANIDE 1 MG INJ IV ×2 (06:29→17:29)
[2017-08-08] MEDS: metroNIDAZOLE 500 MG TAB PO ×3 (06:29→22:01)
[2017-08-08 08:31] LABS: ADD MAN DIFF? NO
[2017-08-08 08:34] LABS: WHITE BLOOD COUNT 8.7 10^3/ul (4.8-10.8)
[2017-08-08 08:34] LABS: BASOPHILS % 0.3 % (0.0-2.0); EOSINOPHILS % 0.1 % (0.0-7.0); HEMATOCRIT 31.1 % (37.0-47.0); HEMOGLOBIN 9.3 g/dl (12.0-16.0); LYMPHOCYTES # 0.7 10^3/ul (0.8-2.9); LYMPHOCYTES % 7.6 % (15.0-51.0); MEAN CORPUSCULAR HEMOGLOBIN 26.6 pg (29.0-33.0); MEAN CORPUSCULAR HGB CONC 29.9 g/dl (32.0-37.0); MEAN CORPUSCULAR VOLUME 89.1 fl (82.0-101.0); MEAN PLATELET VOLUME 10.7 fl (7.4-10.4); MONOCYTE # 0.3 10^3/ul (0.3-0.9); MONOCYTES % 3.1 % (0.0-11.0); NEUTROPHIL # 7.7 10^3/ul (1.6-7.5); NEUTROPHILS % 88.7 % (39.0-77.0); PLATELET COUNT 191 10^3/UL (140-415); RED BLOOD COUNT 3.49 10^6/ul (4.20-5.40); RED CELL DISTRIBUTION WIDTH 14.6 % (11.5-14.5)
[2017-08-08] MEDS: ASPIRIN (EC) 81 MG TAB PO (08:58)
[2017-08-08] MEDS: CLOPIDOGREL 75 MG TAB PO (08:58)
[2017-08-08] MEDS: FISH OIL 1,000 MG CAP PO ×2 (08:58→22:02)
[2017-08-08] MEDS: HEPARIN 5,000 UNIT/0.5 ML VIAL SC ×2 (08:59→22:02)
[2017-08-08] MEDS: ONDANSETRON 4 MG INJ IV ×2 (08:59→20:30)
[2017-08-08 09:00] LABS: ALANINE AMINOTRANSFERASE 27 IU/L (13-69); ALBUMIN/GLOBULIN RATIO 1.37; ALKALINE PHOSPHATASE 119 IU/L (42-121); ANION GAP 19 (8-16); ASPARTATE AMINO TRANSFERASE 24 IU/L (15-46); BLOOD UREA NITROGEN 53 mg/dl (7-20); CALCIUM 9.4 mg/dl (8.4-10.2); CARBON DIOXIDE 29 mmol/L (21-31); CHLORIDE 102 mmol/L (97-110); CREATININE 2.09 mg/dl (0.44-1.00); GLUCOSE 123 mg/dl (70-220); MAGNESIUM 2.1 mg/dl (1.7-2.5); PHOSPHORUS 6.7 mg/dl (2.5-4.9); POTASSIUM 4.5 mmol/L (3.5-5.1); SODIUM 145 mmol/L (135-144); TOTAL PROTEIN 6.9 g/dl (6.1-8.1)
[2017-08-08] MEDS ORDERED: ERGOCALCIFEROL 50,000 UNIT CAP PO (09:00)
[2017-08-08] MEDS ORDERED: VITAMIN A & D 5 GM OINT PACKET TOP (13:20)
[2017-08-08] MEDS: CEFEPIME 1GM/50 ML (PMX) 50 ML IVPB (14:17)
[2017-08-08] MEDS ORDERED: VANCOMYCIN 500MG/NS (PMX) 100 ML IVPB (15:00)
[2017-08-08 15:42] LABS: ANION GAP 18 (8-16); BLOOD UREA NITROGEN 59 mg/dl (7-20); CARBON DIOXIDE 25 mmol/L (21-31); CHLORIDE 104 mmol/L (97-110); CREATININE 2.15 mg/dl (0.44-1.00); GLUCOSE 112 mg/dl (70-220); SODIUM 142 mmol/L (135-144)
[2017-08-08 15:46] LABS: POTASSIUM 5.3 mmol/L (3.5-5.1)
[2017-08-08] MEDS: NA POLYST SULFON 15 GM/60 ML BTL PO (16:32)
[2017-08-08] MEDS: ATORVASTATIN 10 MG TAB PO (22:01)
[2017-08-08] MEDS: ACETAMINOPHEN 325 MG TAB PO (22:07)
[2017-08-09] MEDS: metroNIDAZOLE 500 MG TAB PO ×4 (06:00→21:44)
[2017-08-09] MEDS: PANTOPRAZOLE (EC) 40 MG TAB PO ×2 (06:00→06:17)
[2017-08-09] MEDS: BUMETANIDE 1 MG INJ IV (06:17)
[2017-08-09] MEDS: ALBUTEROL/IPRATROPIUM (NEB) 3 ML AMP HHN (06:26)
[2017-08-09] MEDS: FISH OIL 1,000 MG CAP PO ×2 (08:49→21:00)
[2017-08-09] MEDS: ASPIRIN (EC) 81 MG TAB PO (08:49)
[2017-08-09] MEDS: CLOPIDOGREL 75 MG TAB PO (08:49)
[2017-08-09] MEDS: HEPARIN 5,000 UNIT/0.5 ML VIAL SC ×2 (08:53→21:56)
[2017-08-09 09:50] LABS: ADD MAN DIFF? NO
[2017-08-09 09:58] LABS: WHITE BLOOD COUNT 7.5 10^3/ul (4.8-10.8)
[2017-08-09 09:58] LABS: BASOPHILS % 0.4 % (0.0-2.0); EOSINOPHILS # 0.3 10^3/ul (0.0-0.5); EOSINOPHILS % 4.3 % (0.0-7.0); HEMATOCRIT 29.9 % (37.0-47.0); LYMPHOCYTES # 0.9 10^3/ul (0.8-2.9); LYMPHOCYTES % 11.9 % (15.0-51.0); MEAN CORPUSCULAR HEMOGLOBIN 26.5 pg (29.0-33.0); MEAN CORPUSCULAR HGB CONC 30.1 g/dl (32.0-37.0); MEAN CORPUSCULAR VOLUME 88.2 fl (82.0-101.0); MEAN PLATELET VOLUME 10.8 fl (7.4-10.4); MONOCYTE # 0.5 10^3/ul (0.3-0.9); MONOCYTES % 6.7 % (0.0-11.0); NEUTROPHIL # 5.7 10^3/ul (1.6-7.5); NEUTROPHILS % 76.3 % (39.0-77.0); PLATELET COUNT 217 10^3/UL (140-415); RED BLOOD COUNT 3.39 10^6/ul (4.20-5.40); RED CELL DISTRIBUTION WIDTH 14.6 % (11.5-14.5)
[2017-08-09 10:00] LABS: POSITIVE DIFF @See below
[2017-08-09 11:06] LABS: ANION GAP 16 (8-16); BLOOD UREA NITROGEN 63 mg/dl (7-20); CALCIUM 8.9 mg/dl (8.4-10.2); CARBON DIOXIDE 30 mmol/L (21-31); CHLORIDE 102 mmol/L (97-110); CREATININE 2.57 mg/dl (0.44-1.00); GLUCOSE 133 mg/dl (70-220); POTASSIUM 3.9 mmol/L (3.5-5.1); SODIUM 144 mmol/L (135-144)
[2017-08-09 13:08] LABS: VANCOMYCIN,RANDOM 9.3 ug/ml
[2017-08-09] MEDS: ACETAMINOPHEN 325 MG TAB PO ×2 (14:20→19:53)
[2017-08-09] MEDS: ONDANSETRON 4 MG INJ IV ×2 (14:20→19:53)
[2017-08-09] MEDS: CEFEPIME 1GM/50 ML (PMX) 50 ML IVPB (14:36)
[2017-08-09] MEDS ORDERED: VANCOMYCIN 750 MG in DEXTROSE 5% 150 ML IVPB (15:00)
[2017-08-09] MEDS: VANCOMYCIN 750 MG in DEXTROSE 5% 150 ML IVPB (17:17)
[2017-08-09] MEDS: ATORVASTATIN 10 MG TAB PO (21:45)
[2017-08-10] MEDS: HYDROCODONE/APAP (5/325) TAB PO ×2 (01:06→05:47)
[2017-08-10] MEDS: ONDANSETRON 4 MG INJ IV ×2 (05:46→08:50)
[2017-08-10] MEDS: metroNIDAZOLE 500 MG TAB PO ×3 (05:47→21:00)
[2017-08-10] MEDS: PANTOPRAZOLE (EC) 40 MG TAB PO (05:47)
[2017-08-10] MEDS: FISH OIL 1,000 MG CAP PO ×2 (08:41→20:57)
[2017-08-10] MEDS: CLOPIDOGREL 75 MG TAB PO (08:41)
[2017-08-10] MEDS: HEPARIN 5,000 UNIT/0.5 ML VIAL SC ×2 (08:41→21:02)
[2017-08-10] MEDS: ASPIRIN (EC) 81 MG TAB PO (08:42)
[2017-08-10] MEDS: ACETAMINOPHEN 325 MG TAB PO (08:51)
[2017-08-10 09:01] LABS: ADD MAN DIFF? NO
[2017-08-10 09:14] LABS: WHITE BLOOD COUNT 7.9 10^3/ul (4.8-10.8)
[2017-08-10 09:14] LABS: BASOPHILS % 0.4 % (0.0-2.0); EOSINOPHILS # 0.5 10^3/ul (0.0-0.5); HEMATOCRIT 30.5 % (37.0-47.0); HEMOGLOBIN 9.2 g/dl (12.0-16.0); LYMPHOCYTES # 1.2 10^3/ul (0.8-2.9); LYMPHOCYTES % 15.5 % (15.0-51.0); MEAN CORPUSCULAR HEMOGLOBIN 26.4 pg (29.0-33.0); MEAN CORPUSCULAR HGB CONC 30.2 g/dl (32.0-37.0); MEAN CORPUSCULAR VOLUME 87.4 fl (82.0-101.0); MEAN PLATELET VOLUME 10.8 fl (7.4-10.4); MONOCYTE # 0.6 10^3/ul (0.3-0.9); MONOCYTES % 7.4 % (0.0-11.0); NEUTROPHIL # 5.6 10^3/ul (1.6-7.5); NEUTROPHILS % 70.3 % (39.0-77.0); PLATELET COUNT 232 10^3/UL (140-415); RED BLOOD COUNT 3.49 10^6/ul (4.20-5.40); RED CELL DISTRIBUTION WIDTH 14.4 % (11.5-14.5)
[2017-08-10 09:34] LABS: ANION GAP 17 (8-16); BLOOD UREA NITROGEN 67 mg/dl (7-20); CALCIUM 8.8 mg/dl (8.4-10.2); CARBON DIOXIDE 28 mmol/L (21-31); CHLORIDE 102 mmol/L (97-110); CREATININE 2.77 mg/dl (0.44-1.00); GLUCOSE 161 mg/dl (70-220); MAGNESIUM 2.2 mg/dl (1.7-2.5); PHOSPHORUS 5.6 mg/dl (2.5-4.9); POTASSIUM 3.8 mmol/L (3.5-5.1); SODIUM 143 mmol/L (135-144)
[2017-08-10] MEDS: SOD CHLORIDE 0.9% 1,000 ML IV (14:21)
[2017-08-10] MEDS: CEFEPIME 1GM/50 ML (PMX) 50 ML IVPB (14:22)
[2017-08-10] MEDS: ATORVASTATIN 10 MG TAB PO (20:57)
[2017-08-11] MEDS: PANTOPRAZOLE (EC) 40 MG TAB PO (05:43)
[2017-08-11] MEDS: metroNIDAZOLE 500 MG TAB PO ×3 (05:43→21:31)
[2017-08-11] MEDS: HYDROCODONE/APAP (5/325) TAB PO ×3 (05:49→21:31)
[2017-08-11] MEDS: ONDANSETRON 4 MG INJ IV (05:49)
[2017-08-11] MEDS: SOD CHLORIDE 0.9% 1,000 ML IV (07:06)
[2017-08-11] MEDS: CLOPIDOGREL 75 MG TAB PO (08:33)
[2017-08-11] MEDS: FISH OIL 1,000 MG CAP PO ×2 (08:33→21:00)
[2017-08-11] MEDS: FUROSEMIDE 40 MG INJ IV (08:33)
[2017-08-11] MEDS: ASPIRIN (EC) 81 MG TAB PO (08:34)
[2017-08-11] MEDS: HEPARIN 5,000 UNIT/0.5 ML VIAL SC ×2 (08:43→21:00)
[2017-08-11] MEDS: CEFEPIME 1GM/50 ML (PMX) 50 ML IVPB (14:51)
[2017-08-11] MEDS: ATORVASTATIN 10 MG TAB PO (21:00)
[2017-08-11] MEDS: VANCOMYCIN 500MG/NS (PMX) 100 ML IVPB (21:33)
[2017-08-11] MEDS: hydrALAzine 20 MG INJ IV (23:38)
[2017-08-12] MEDS: metroNIDAZOLE 500 MG TAB PO ×3 (06:05→21:01)
[2017-08-12] MEDS: PANTOPRAZOLE (EC) 40 MG TAB PO (06:05)
[2017-08-12 07:34] LABS: ANION GAP 21 (8-16); BLOOD UREA NITROGEN 74 mg/dl (7-20); CALCIUM 9.3 mg/dl (8.4-10.2); CARBON DIOXIDE 25 mmol/L (21-31); CHLORIDE 107 mmol/L (97-110); CREATININE 2.72 mg/dl (0.44-1.00); GLUCOSE 128 mg/dl (70-220); POTASSIUM 3.8 mmol/L (3.5-5.1); SODIUM 149 mmol/L (135-144)
[2017-08-12] MEDS: FISH OIL 1,000 MG CAP PO ×2 (09:00→21:00)
[2017-08-12] MEDS: ASPIRIN (EC) 81 MG TAB PO (09:00)
[2017-08-12] MEDS: CLOPIDOGREL 75 MG TAB PO (09:00)
[2017-08-12] MEDS: HEPARIN 5,000 UNIT/0.5 ML VIAL SC ×2 (09:00→21:00)
[2017-08-12] MEDS: CEFEPIME 1GM/50 ML (PMX) 50 ML IVPB (14:30)
[2017-08-12] MEDS: ATORVASTATIN 10 MG TAB PO (21:00)
[2017-08-13] MEDS: PANTOPRAZOLE (EC) 40 MG TAB PO (05:53)
[2017-08-13] MEDS: metroNIDAZOLE 500 MG TAB PO (05:53)
[2017-08-13] MEDS: CLOPIDOGREL 75 MG TAB PO (09:00)
[2017-08-13] MEDS: FISH OIL 1,000 MG CAP PO (09:00)
[2017-08-13] MEDS: HEPARIN 5,000 UNIT/0.5 ML VIAL SC (09:00)
[2017-08-13] MEDS: ASPIRIN (EC) 81 MG TAB PO (09:00)
== END 2017-08-13 15:32 | disposition hospice, home (50) | DRG 291 ==
LOC: E/R 06:21 → MS4 08:45
DX: I13.0 Hypertensive heart and chronic kidney disease with heart failure and stage 1 through stage 4 chronic kidney disease, or unspecified chronic kidney disease (principal); I50.43 Acute on chronic combined systolic (congestive) and diastolic (congestive) heart failure; J69.0 Pneumonitis due to inhalation of food and vomit; N17.9 Acute kidney failure, unspecified; E87.0 Hyperosmolality and hypernatremia; N18.9 Chronic kidney disease, unspecified; I35.0 Nonrheumatic aortic (valve) stenosis; I42.9 Cardiomyopathy, unspecified; I25.2 Old myocardial infarction; E78.5 Hyperlipidemia, unspecified; D63.1 Anemia in chronic kidney disease; Z66 Do not resuscitate; Z95.0 Presence of cardiac pacemaker
CPT/HCPCS: 36415; 36600; 71045; 80048; 80053; 80202; 82550; 82553; 82803; 83735; 84100; 84484; 85025; 87081; 92610; 93005; 94640; 94660; 94664; 96374; 99285-25; G0378